=== PATIENT | female | born 1985 | race Asian ===

== ENCOUNTER 2018-09-03 21:08 | Inpatient (IN) | payer OTHER ==
[2018-09-03] MEDS ORDERED: DIPHTH,PERTUSS(ACELL),TET 0.5 ML DISP.SYRIN IM ONE ×2 (21:17→22:02)
--- NOTE | 2018-09-03 21:20 | PDOC ---
Rapid Medical Evaluation Time Seen by Provider: 09/03/18 21:11 Medical Evaluation: 09/03/18 21:16 Pt c/o: was cooking and suddenly felt dizzy and then fell to the ground, + LOC of unknown time, pt states likely minutes, now c/o headache and nausea Pt on brief exam: appears groggy and slightly unsure what time she started cooking at, vss, + linear deep lac to left temporal region Pt ordered for: labs, ekg, and head ct Pt to proceed to the ED Discharge Disposition - Diagnosis Head injury - Referrals - Patient Instructions - Post Discharge Activity
[2018-09-03 21:45] LABS: BASO % 0.7 % (0-2.0); EOS % 1.1 % (0-4.5); HEMATOCRIT 36.8 % (32.4-45.2); HEMOGLOBIN 11.6 GM/dL (10.7-15.3); LYMPH % 15.9 % (8-40); MCH 25.9 pg (25.7-33.7); MCHC 31.6 g/dl (32.0-36.0); MEAN PLT VOLUME 7.3 fl (7.5-11.1); MONO % 5.7 % (3.8-10.2); NEUT % 76.6 % (42.8-82.8); PLATELET COUNT 372 K/MM3 (134-434); RBC 4.49 M/mm3 (3.60-5.2); RDW 20.3 % (11.6-15.6); WHITE BLOOD COUNT 6.3 K/mm3 (4.0-10.0)
--- NOTE | 2018-09-03 22:11 | PDOC ---
History of Present Illness - General Chief Complaint: Syncope/Near Syncope Stated Complaint: PASS OUT HIT HEAD Time Seen by Provider: 09/03/18 21:11 - History of Present Illness Initial Comments: Adelaida Mirza is a 33yo woman with no known medical history who presents after a syncopal event at home tonight. She says that she was cooking dinner when she began to feel overheated, nauseated, and dizzy. She then woke up on the floor and says she must have passed out and fallen. She hit her head during the fall as she presented with a left scalp laceration, but she is not sure what she hit. She reports a headache but denies any other pain currently. She says that she feels very tired, but she says that she is normally asleep at this time as she works overnights and does not wake up until after midnight. She is not sure how long she has been awake at this point. She denies neck pain, recent fevers, h/o syncope, history of seizures, chest pain, shortness of breath, alcohol/drug use, or sick contacts. Past History - Past Medical History Allergies/Adverse Reactions: Allergies Allergy/AdvReac Type Severity Reaction Status Date / Time pollen extracts Allergy Verified 09/03/18 21:15 Anemia: No Asthma: No Cancer: No Cardiac Disorders: No CVA: No COPD: No Other medical history: h/o syncope 2018 - Suicide/Smoking/Psychosocial Hx Smoking History: Never smoked Have you smoked in the past 12 months: No Information on smoking cessation initiated: No Hx Alcohol Use: Yes (social) Drug/Substance Use Hx: No Review of Systems - Review of Systems Comments:: General: No fevers, no chills, no weight or appetite change, no malaise HEENT: No changes in vision, no changes in hearing, no congestion, no sore throat CV: No chest pain, no palpitations, no LE edema Pulm: No SOB, no cough, no wheezing GI: No nausea or vomiting, no change in bowel habits, no melena : No frequency, no urgency, no dysuria Musc: No back pain, no joint swelling, no recent injury Skin: No rash, no lesions, no erythema Endo: No excessive thirst, no heat/cold intolerance Heme: No unusual bruising or bleeding, no swollen glands Neuro: + syncope, no numbness/tingling, no focal weakness Vasc: No claudication Psych: No recent change in mood, no SI or HI *Physical Exam - Vital Signs Last Vital Signs Temp Pulse Resp BP Pulse Ox 98.1 F 93 H 20 118/88 99 09/03/18 21:16 09/03/18 21:16 09/03/18 21:16 09/03/18 21:16 09/03/18 21:16 - Physical Exam Comments: General: Diaphoretic, mildly confused, no acute distress HEENT: PERRL, EOMI, MMM, normal neck ROM w/o posterior neck tenderness, no LAD. 2 laceration, clean and linear without active bleeding, on left frontal/ parietal scalp under hairline. Cards: RRR, no murmur appreciated Pulm: Comfortable on room air, clear to auscultation bilaterally Abd: Soft, nontender, nondistended Back: No visible injury, no step-offs or deformities Ext: Atraumatic. No LE edema. ROM intact. Strength 5/5 and equal bilaterally Vasc: Extremities WWP. Skin: Normal color, no rashes or lesions Neuro: Awake, responsive, oriented but slow responses and appears confused (eg "I do not think I worked yesterday"), CN grossly intact, normal speech, motor/ sensory grossly intact and symmetric but delayed responses Psych: Slightly flat, uncaring Procedures - Laceration/Wound Repair Left Lateral Frontal Wound Length: to 2.5 cm Wound Explored: clean Wound's Depth, Shape: linear Irrigated w/ Saline: Yes Anesthesia: 1% Lidocaine Amount of Anesthetic (ccs): 3 Wound Repaired With: [place] Sterile Dressing Applied: No ED Treatment Course - LABORATORY CBC & Chemistry Diagram: 09/03/18 20:30 09/03/18 20:30 - ADDITIONAL ORDERS Additional order review: 09/03/18 20:30 RBC 4.49 MCV 82.0 MCHC 31.6 L RDW 20.3 H MPV 7.3 L Neutrophils % 76.6 Lymphocytes % 15.9 Monocytes % 5.7 Eosinophils % 1.1 Basophils % 0.7 - Medications Given in the ED: ED Medications Discontinued Medications Generic Name Dose Route Start Last Admin Trade Name Freq PRN Reason Stop Dose Admin Diphtheria/Tetanus/Acell Pertussis 0.5 ml 09/03/18 21:17 09/03/18 22:02 Boostrix - IM 09/03/18 21:18 0.5 ml .ONCE ONE Administration Medical Decision Making - Medical Decision Making 09/03/18 22:30 Several attempts made to see Ms Mirza, not present in assigned room. Nurse Keith has also been unable to locate her. Labs sent in [facility] including CBC, chemistry, test completed and reviewed. No concerning abnormalities appreciated. Trop negative. Preg negative. EKG, CT head, CXR to be completed. 09/03/18 23:29 - Pt examined following CT. Notable for diaphoresis, delayed responses, appears mildy confused; possible concussion. No focal deficits. 2cm deep laceration on left frontal/parietal scalp that will require jaycob. Reports feeling hot, nauseated prior to syncope. May be vagal, but unclear cause. - Pt hypotensive in 90's, HR in low 60's - Will give IVF, place on cardiac monitors. 09/03/18 23:41 - CT completed. No fracture or acute intracranial pathology noted - Plan to repair scalp laceration 09/04/18 00:54 - Laceration repair completed at bedside. The wound was anesthetized with 3cc of 1% lidocaine. The wound was then irrigated with sterile saline and explored thoroughly. No foreign material was noted. The laceration was then repaired using 5 jaycob. The wound edges were well approximated, and adequate hemostasis was achieved. The procedure was well tolerated, and no complications were observed. Ms Mirza will need to return in 7-10 days for staple removal. - Sign out given to Dr Sal for the remainder of her ED care. Discussed with Dr Bethea. Shyann Berger PGY1 *DC/Admit/Observation/Transfer Diagnosis at time of Disposition: Head injury - Referrals - Patient Instructions - Post Discharge Activity
[2018-09-03 22:20] LABS: ALBUMIN 3.7 g/dl (3.4-5.0); ALK PHOS 50 U/L (45-117); ANION GAP 10 MMOL/L (8-16); BILIRUBIN,TOTAL 0.2 mg/dL (0.2-1); BLOOD UREA NITROGEN 8 mg/dL (7-18); CALCIUM 7.9 mg/dL (8.5-10.1); CHLORIDE 106 mmol/L (98-107); CO2 24 mmol/L (21-32); CREATININE 0.7 mg/dL (0.55-1.3); GLUCOSE,RANDOM 91 mg/dL (74-106); POTASSIUM 4.7 mmol/L (3.5-5.1); SGOT/AST 23 U/L (15-37); SGPT/ALT 15 U/L (13-61); SODIUM 140 mmol/L (136-145); TOT PROT 7.4 g/dl (6.4-8.2)
[2018-09-03] MEDS ORDERED: SODIUM CHLORIDE 1,000 ML IV STA (23:15)
[2018-09-04] MEDS ORDERED: SODIUM CHLORIDE 1,000 ML IV STA (00:38)
--- NOTE | 2018-09-04 00:42 | PDOC ---
*Physical Exam - Vital Signs Last Vital Signs Temp Pulse Resp BP Pulse Ox 98.1 F 93 H 20 118/88 99 09/03/18 21:16 09/03/18 21:16 09/03/18 21:16 09/03/18 21:16 09/03/18 21:16 - Physical Exam Comments: 09/04/18 00:[address] Berger in brief this is a 33yo woman with no known medical history who presents after a syncopal event at home tonight. Laceration of left head. CT head negative. ED Treatment Course - LABORATORY CBC & Chemistry Diagram: 09/03/18 20:30 09/03/18 20:30 - ADDITIONAL ORDERS Additional order review: Laboratory Results 09/03/18 09/03/18 09/03/18 20:30 20:30 20:30 Sodium 140 Potassium 4.7 Chloride 106 Carbon Dioxide 24 Anion Gap 10 BUN 8 Creatinine 0.7 Est GFR (CKD-EPI)AfAm 133.81 Est GFR (CKD-EPI)NonAf 115.45 Random Glucose 91 Calcium 7.9 L Total Bilirubin 0.2 AST 23 ALT 15 Alkaline Phosphatase 50 Creatine Kinase 108 Troponin I < 0.02 Total Protein 7.4 Albumin 3.7 Serum , Qual Negative Blood Type O POSITIVE Antibody Screen Negative 09/03/18 20:30 RBC 4.49 MCV 82.0 MCHC 31.6 L RDW 20.3 H MPV 7.3 L Neutrophils % 76.6 Lymphocytes % 15.9 Monocytes % 5.7 Eosinophils % 1.1 Basophils % 0.7 - Medications Given in the ED: ED Medications Discontinued Medications Generic Name Dose Route Start Last Admin Trade Name Freq PRN Reason Stop Dose Admin Diphtheria/Tetanus/Acell Pertussis 0.5 ml 09/03/18 21:17 09/03/18 22:02 Boostrix - IM 09/03/18 21:18 0.5 ml .ONCE ONE Administration Sodium Chloride 1,000 mls @ 1,000 mls/hr 09/03/18 23:15 09/03/18 23:43 Normal Saline - IV 09/04/18 00:14 1,000 mls/hr ASDIR STA Administration Medical Decision Making - Medical Decision Making 09/04/18 06:[address] Rivera will admit to telemetry for further management. *DC/Admit/Observation/Transfer Diagnosis at time of Disposition: Head injury Qualifiers: Encounter type: initial encounter Qualified Code(s): S09.90XA - Unspecified injury of head, initial encounter Syncope Qualifiers: Syncope type: unspecified Qualified Code(s): R55 - Syncope and collapse - Discharge Dispostion Decision to Admit order: Yes - Referrals - Patient Instructions - Post Discharge Activity
--- NOTE | 2018-09-04 02:33 | PDOC ---
Documentation entered by Steven Chambers SCRIBE, acting as scribe for Linda Bethea MD. Linda Bethea MD: This documentation has been prepared by the Trish huston Nirvannie, SCRIBE, under my direction and personally reviewed by me in its entirety. I confirm that the documentation accurately reflects all work, treatment, procedures, and medical decision making performed by me. Attending Attestation - Resident Resident Name: Shyann Berger - ED Attending Attestation I have performed the following: I have examined & evaluated the patient, The case was reviewed & discussed with the resident, I agree w/resident's findings & plan, Exceptions are as noted - HPI HPI: 09/03/18 23:19 The patient is a 33 year old female, with no significant past medical history, who presents to the emergency department s/p fall. As per patient, she was feeling lightheaded, nauseous, and "warm" as she was cooking at which point she fell subsequently hitting her head. +LOC. When she woke up, she noticed bleeding from the L side of her head. Does not know how long she was out for. Currently states she feels generalized weakness and a gradual onset global headache since she fell. She reports a history of a similar syncopal episode but does not recall the circumstances. States that she thinks she just completed her period but is not sure. Denies any drug or alcohol use recently. States she lives with her roommates. Does not remember her last tetanus shot. Denies fevers, chills, stiff neck, rashes. She denies recent vomit, diarrhea or constipation. She denies recent dysuria, frequency, urgency or hematuria. She denies recent chest pain or shortness of breath. Denies focal weakness or numbness. Allergies: Pollen extracts. - Physicial Exam PE: 09/03/18 23:19 GENERAL: Awake, lethargic appearing, confused, slow to respond to questions. Non toxic appearing in NAD HEAD: +hemostatic laceration to L parietal scalp EYES: PERRLA, EOMI, sclera anicteric, conjunctiva clear. +5-6 beats of nystagmus with R gaze that self extinguishes ENT: Auricles normal inspection, hearing grossly normal, nares patent, oropharynx clear without exudates. Moist mucosa NECK: Normal ROM, supple, no lymphadenopathy LUNGS: Breath sounds equal, clear to auscultation bilaterally. No wheezes, and no crackles HEART: Regular rate and rhythm, normal S1 and S2, no murmurs, rubs or gallops ABDOMEN: Soft, nontender, normoactive bowel sounds. No guarding, no rebound. No masses EXTREMITIES: Normal range of motion, no edema. No clubbing or cyanosis. No cords , erythema, or tenderness BACK: No midline spinal tenderness in cervical/thoracic/lumbar region NEUROLOGICAL: Fluent speech but slow to respond to questions, cranial nerves intact, negative pronator drift, 5/5 strength in all 4 extremities, normal sensation to light touch in all 4 extremities, normal cerebellar exam, normal gait, normal reflexes and tone SKIN: Warm, Dry, normal turgor, no rashes or lesions noted. - Medical Decision Making 09/04/18 02:29 33yo F presents to the ED with syncopal episode Vitals wnl Syncopal prodrome most consistent with vasovagal syncope, however pt has been slow to respond and has appeared confused at times For example, obinna asked who her PMD is, she looks at her hospital ID band and states "I'm not sure I have one yet" Broad toxic, metabolic, infectious, neurologic w/u not revealing thus far Despite 2L of fluids and observation, pt has been persistantly slow to respond to questions Possible concussion vs post ictal vs toxic ingestion such as K2? Plan to observe pt on telemetry for further management Heart Score/ECG Review #1 09/04/18 02:28 Twelve-lead EKG was performed and reviewed by me. Normal sinus rhythm, rate 63. Normal axis and intervals. No ST elevations. T wave inversions in leads 3 and V3. No previous EKG to compare.
--- NOTE | 2018-09-04 02:47 | PN ---
Teaching Attending Note Name of Resident: Rosa Rivera ATTENDING PHYSICIAN STATEMENT I saw and evaluated the patient. I reviewed the resident's note and discussed the case with the resident. I agree with the resident's findings and plan as documented. SUBJECTIVE: Patient is a 33 year old woman with no significant PMH who presents to the ER after a fall. Patient says she was feeling lightheaded, nauseous, and "warm" as she was cooking, then fell and hit her head, with associated LOC. When she woke up, she noticed bleeding from the left side of her head. Does not know how long she was out for. Currently states she feels generalized weakness and a gradual onset global headache since she fell. No fecal or urinary incontinence. She reports a history of a similar syncopal episode but does not recall the circumstances. States that she thinks she just completed her period but is not sure. Denies any drug or alcohol use recently. States she lives with her roommates. Does not remember her last tetanus shot. Denies fevers, chills, stiff neck, rashes. She denies recent vomiting, diarrhea or constipation. She denies recent dysuria, frequency, urgency or hematuria. She denies recent chest pain or shortness of breath. Denies focal weakness or numbness. OBJECTIVE: Lethargic and intermittently confused Vital Signs Period Temp Pulse Resp BP Sys/[place] Pulse Ox Last 24 Hr 98.1 F 93 20 118/88 99 HEENT: No Jaundice, eye redness or discharge, PERRLA, Horizontal nystagmus. Normocephalic, laceration on parietal scalp with jaycob. External ears are normal and hearing is grossly intact. No nasal discharge. Neck: Supple, nontender. No palpable adenopathy or thyromegaly. No JVD Chest: Good effort. Clear to auscultation and percussion. Heart: Regular. No S3, rub or murmur Abdomen: Not distended, soft, nontender and no HSM. No rebound or guarding. Normal bowel sounds. Ext: Peripheral pulses intact. No leg edema. Skin: Warm and dry. No petechiae, rash or ecchymosis. Neuro: Lethargic but arousale; intermittently confused; sluggish and slow to respond to questions; poor memory. Oriented to person. CN 2-12 grossly intact. Sensation grossly intact in all four extremities and DTR are symmetric. Psych: Appropriate mood and affect. Good insight. Abnormal Lab Results 09/03/18 09/03/18 09/04/18 20:30 20:30 00:00 MCHC 31.6 L RDW 20.3 H MPV 7.3 L Calcium 7.9 L Salicylates < 1.7 L Acetaminophen < 2.0 L ASSESSMENT AND PLAN: 1. Syncope/Fall and Head Trauma - Etiology of syncope unclear. Vasovagal syncope or partial complex seizures are likely culprits. No acute abnormality on noncontrast head CT scan. Blood tests for Aspirin, tylenol and alcohol were negative and urine toxicology screen is negative. EKG shows NSR with t wave inversion in III and V3 and initial troponin is negative. Will continue IV fluids and monitor on telemetry. Got DPT vaccine in the ER. Now possibly has cerebral concussion. Will get speech and swallow evaluation, do neurochecks, implement fall, seizure and aspiration precautions. Will get repeat EKG and troponin, ECHO, carotid doppler and EEG. Consult Neurology and PT. Most important, will strive to contact her roommates or any family members during the day to obtain more information. Curiously non of her roommates accompanied her to the ER after such a traumatic event - considering that ?one of them called the EMS. 2. DVT prophylaxis - Lovenox 40 mg SQ q 24 hours. 3. Advance directives - Full code
--- NOTE | 2018-09-04 03:29 | HP ---
CHIEF COMPLAINT: s/p fall, syncope PCP: none HISTORY OF PRESENT ILLNESS: 33 y/o F with no significant PMH who presents to the ED s/p fall which occurred this evening. As per pt, she was cooking dinner when she suddenly began to feel warm, diaphoretic, and nauseated. Next thing she knew, she was on the floor. Endorses LOC and laceration to the L temporal portion of head. Does not recall palpitations or chest pain before the event. Also denies urinary or bowel incontinence and tongue biting. On examination, pt is lethargic and slow to respond. Lives with roommates. Denies recent ingestions or alcohol. Denies [place], fever, chills, SOB, chest pain or pressure, or changes in urinary or bowel function. No collateral information provided, as no roommates or family/friends at bedside. Pt states that she has had syncopal events before, but does not recall when they were. ER course was notable for: (1) ns 2L, orthostatics (-) prior as per ED (2) tdap (3) Recent Travel: [place] in july PAST MEDICAL HISTORY: none PAST SURGICAL HISTORY: none Social History: lives w roommates Smoking: denies Alcohol: "sometimes" Drugs: denies Family History: mother - breast [place] Allergies pollen extracts Allergy (Verified 09/03/18 21:15) fructose intolerance HOME MEDICATIONS: states she takes an antihistamine PRN . does not recall name REVIEW OF SYSTEMS CONSTITUTIONAL: Absent: fever, chills, diaphoresis, generalized weakness, malaise, loss of appetite, weight change HEENT: Absent: rhinorrhea, nasal congestion, throat pain, throat swelling, difficulty swallowing, mouth swelling, ear pain, eye pain, visual changes CARDIOVASCULAR: Absent: chest pain, syncope, palpitations, irregular heart rate, lightheadedness , peripheral edema RESPIRATORY: Absent: cough, shortness of breath, dyspnea with exertion, orthopnea, wheezing, stridor, hemoptysis GASTROINTESTINAL: Absent: abdominal pain, abdominal distension, nausea, vomiting, diarrhea, constipation, melena, hematochezia GENITOURINARY: Absent: dysuria, frequency, urgency, hesitancy, hematuria, flank pain, genital pain MUSCULOSKELETAL: Absent: myalgia, arthralgia, joint swelling, back pain, neck pain SKIN: Absent: rash, itching, pallor HEMATOLOGIC/IMMUNOLOGIC: Absent: easy bleeding, easy bruising, lymphadenopathy, frequent infections ENDOCRINE: Absent: unexplained weight gain, unexplained weight loss, heat intolerance, cold intolerance NEUROLOGIC: +mental status change Absent: headache, focal weakness or paresthesias, dizziness, unsteady gait, seizure, mental status changes, bladder or bowel incontinence PSYCHIATRIC: Absent: anxiety, depression, suicidal or homicidal ideation, hallucinations. PHYSICAL EXAMINATION Vital Signs - 24 hr 09/03/18 21:16 Temperature 98.1 F Pulse Rate 93 H Respiratory 20 Rate Blood Pressure 118/88 O2 Sat by Pulse 99 Oximetry (%) GENERAL: AAO x 3 however slow to respond. HEAD: +L temporal abrasion w 5 jaycob. +bruising EYES: Pupils equal, round and reactive to light, extraocular movements intact, sclera anicteric, conjunctiva clear. +intermittent horizontal nystagmus EARS, NOSE, THROAT: Ears normal, nares patent, oropharynx clear without exudates. Moist mucous membranes. NECK: Normal range of motion, supple LUNGS: Breath sounds equal, clear to auscultation bilaterally. No wheezes, and no crackles. No accessory muscle use. HEART: +tachycardic rate and rhythm, normal S1 and S2 without murmur, rub or gallop. ABDOMEN: Soft, nontender, not distended, normoactive bowel sounds, no guarding, no rebound, no masses. LOWER EXTREMITIES: 2+ pt pulses, warm, well-perfused. No calf tenderness. No peripheral edema. NEUROLOGICAL: Cranial nerves II-XII intact. would not participate in strength exam . sensation intact. PSYCHIATRIC: Cooperative. SKIN: Warm, dry Laboratory Tests 09/03/18 09/03/18 09/03/18 20:30 20:30 20:30 WBC 6.3 Hgb 11.6 Hct 36.8 Plt Count 372 Sodium 140 Potassium 4.7 Chloride 106 Carbon Dioxide 24 BUN 8 Creatinine 0.7 Troponin I < 0.02 Serum , Qual Negative Urine Color Acetaminophen 09/04/18 09/04/18 09/04/18 00:00 03:14 03:14 Hgb Troponin I Serum , Qual Urine Color Yellow Urine Appearance Clear Urine pH 7.0 Ur Specific [place] 1.012 Urine Protein Negative Urine Glucose (UA) Negative Urine Ketones Negative Urine Blood Negative Urine Nitrite Negative Urine Bilirubin Negative Ur Leukocyte Esterase Negative Salicylates < 1.7 L Opiates Screen Pending Methadone Screen Pending Acetaminophen < 2.0 L EKG: TWI 3, v3 . not in contiguous leads. rate 84bpm, qtc 451ms head CT: +L frontal scalp laceration, otherwise WNL ASSESSMENT/PLAN: 33 y/o F with no significant PMH who presents to the ED s/p fall which occurred this evening. As per pt, she was cooking dinner when she suddenly began to feel warm, diaphoretic, and nauseated. #s/p fall syncope vs. seizure -possible 2/2 vasovagal syncope given prodrome prior. however will need to r/o syncope: f/u ECHO, carotid duplex, tele monitoring for arrhythmias -will hydrate IV NS 100 cc/hr -possible also 2/2 seizure. appears confused may be post-ictal. was unwitnessed -will consult neuro for further w/u. Dr. Yanes -concerning cause- no evidence of infection with UA (-), afebrile. full utox pending -sympt may also be post-concussive causing mood change -NPO until more awake #F/E/N IV NS 100 cc/hr continue to follow lytes npo until more awake. then can advance #PPX DVT: SCD's #Dispo admit to tele will need neuro w/u does not appear to solely be vasovagal. need to r/o seizure , other component d/t current lethargy, nystagmus, etc Visit type - Emergency Visit Emergency Visit: Yes ED Registration Date: 09/04/18 Care time: The patient presented to the Emergency Department on the above date and was hospitalized for further evaluation of their emergent condition. - New Patient This patient is new to me today: Yes Date on this admission: 09/03/18 - Critical Care Critical Care patient: No
[2018-09-04 03:36] LABS: URINE APPEARANCE CLEAR; URINE BILIRUBIN NEGATIVE (NEGATIVE); URINE COLOR YELLOW; URINE GLUCOSE (UA) NEGATIVE (NEGATIVE); URINE KETONE NEGATIVE (NEGATIVE); URINE LEUK ESTERASE NEGATIVE (NEGATIVE); URINE NITRITE NEGATIVE (NEGATIVE); URINE PROTEIN NEGATIVE (NEGATIVE); URINE UROBILINOGEN 0.2 mg/dL (0.2-1.0)
[2018-09-04 03:54] LABS: COCAINE, UR NEGATIVE ng/ml (CUTOFF=300); METHADONE, UR NEGATIVE ng/ml (CUTOFF=300); OPIATES, URI NEGATIVE ng/ml (CUTOFF=300); PHENCYCLIDINE,URINE NEGATIVE ng/ml (CUTOFF=25); URINE AMPHETAMINES NEGATIVE ng/ml (CUTOFF=500); URINE BARBITURATES NEGATIVE ng/ml (CUTOFF=200); URINE BENZODIAZEPINES NEGATIVE ng/ml (CUTOFF=200)
[2018-09-04] MEDS: SODIUM CHLORIDE 1,000 ML IV SCH (05:17)
[2018-09-04 06:07] LABS: BASO % 0.7 % (0-2.0); HEMATOCRIT 33.5 % (32.4-45.2); HEMOGLOBIN 10.5 GM/dL (10.7-15.3); LYMPH % 21.7 % (8-40); MCH 25.8 pg (25.7-33.7); MCHC 31.5 g/dl (32.0-36.0); MEAN CELL VOLUME 82.2 fl (80-96); MEAN PLT VOLUME 7.5 fl (7.5-11.1); NEUT % 68.6 % (42.8-82.8); PLATELET COUNT 368 K/MM3 (134-434); RBC 4.07 M/mm3 (3.60-5.2); WHITE BLOOD COUNT 6.8 K/mm3 (4.0-10.0)
[2018-09-04 06:36] LABS: ALBUMIN 3.1 g/dl (3.4-5.0); BILIRUBIN,TOTAL 0.3 mg/dL (0.2-1); CALCIUM 7.5 mg/dL (8.5-10.1); CREATININE 0.7 mg/dL (0.55-1.3); PHOSPHOROUS 3.1 mg/dL (2.5-4.9); POTASSIUM 3.9 mmol/L (3.5-5.1); TOT PROT 6.1 g/dl (6.4-8.2)
--- NOTE | 2018-09-04 09:44 | PN ---
Progress Note (short form) - Note Progress Note: c/o slight DAVENPORT which has improved since arrival. states had similar episode a year ago when taking out the trash. had sudden onset of dizzyness and nausea and had LOC. did not hit her head that time and did not seek medical attention at that time. no similar episodes since then. was hospitalized a few times when she was 8 years old due to hallucinations. but does not recall what was cause of them but they have since resolved and never recalls being on medications for this. only take zyrtec at bedtime. no new medications. reports being well the past few days. denies CP, SOB, fever, chills, N/V/C/D reports not drinking ETOH yesterday Current Medications Generic Name Dose Route Start Last Admin Trade Name Freq PRN Reason Stop Dose Admin Sodium Chloride 1,000 mls @ 100 mls/hr 09/04/18 03:30 09/04/18 05:17 Normal Saline - IV 100 mls/hr ASDIR SAL Administration Last Vital Signs Temp Pulse Resp BP Pulse Ox 98.0 F 68 18 115/71 98 09/04/18 03:19 09/04/18 06:52 09/04/18 06:52 09/04/18 06:52 09/04/18 07:24 General NAD, flat affect, slow to respond HEENT L lateral nystagmus CV s1 S2 RRR no murmur/rub/gallop no carotid bruit Lungs CTA B/L no wheezing/rales/rhonchi Abdomen soft NT/ND Extremities no pedal edema neuro CN II- XII grossly intact. strength and sensation equal inall 4 extremities A/P 33yo F with no PMH presented after syncopal episode with +LOC and striking her head 1. Syncope with collapse- possible dehydration vs arrythmia vs seizure with collapse. will place on cardiac monitoring. check orthostatics. echo pending. Neuro consulted. Head CT and carotid doppler were normal. TSH, UA and Utox normal. 2. Normocytic anemia- no signs of bleeding. check iron studies. trend hgb no indication for transfusion 3. Hypocalcemia- start multivitamin with ca 4. DVT ppx- Lovenox Visit type - Emergency Visit Emergency Visit: Yes ED Registration Date: 09/04/18 Care time: The patient presented to the Emergency Department on the above date and was hospitalized for further evaluation of their emergent condition. - New Patient This patient is new to me today: Yes Date on this admission: 09/04/18 - Critical Care Critical Care patient: No - Discharge Referral Referred to [facility] Med P.C.: No
[2018-09-04] MEDS ORDERED: ENOXAPARIN NA (PORCINE) 40 MG/0.4 ML DISP.SYRIN SQ ONE (11:24)
[2018-09-04] MEDS: ENOXAPARIN NA (PORCINE) 40 MG/0.4 ML DISP.SYRIN SQ SCH (11:39)
[2018-09-04] MEDS: MULTIVITAMINS (DAILY MVI) TABLET (FP) PO SCH (13:00)
[2018-09-04 16:01] VITALS: BMI 22.5
--- NOTE | 2018-09-04 17:26 | CONSULT ---
Consult - text type - Consultation Consultation Note: NEUROLOGY CONSULTATION is greatly appreciated: This 33 yo RH s woman with No sig PMH is admitted after fainting. She was cooking when she developed lightheadedness, a hot flushing feeling, became cold and clammy, had progressive graying of vision then LOC. Awoke on kitchen floor, briefly confused than rapidly reoriented. No tongue biting. No incontinence. Pt had transient ringing in her ears yesterday. Resolved. Patient recalls one similar episode about 1 year ago. Walked 10 mins to ER. Noted to have left forehead laceration requiring 5 jaycob. Had dull holocranial headache yesterday without nausea. Mild L sided DAVENPORT today. CT of head (reviewed): Normal Carotid duplex: Normal No othostatic BP changes (110/60) ROS sig: for "daily" episodes of throat tightness with SOB and lightheadedness lasting 20-60 mins. This lightheadedness is "different" from yesterday. Episodic left sided throbbing headaches with photophobia, phonophobia and kinesiophobia. 2-3/month often with menses. +FH in mother and mat. GM. Feels depressed. HAYLEE: Neck supple. Small abrasion left cheek and clean suture line left rastafari. No bruits. Chest clear. NEURO: Awake, alert, withdrawn and depressed. MS Normal. Speech hypophonic but fluent. CN II-XII: normal Motor: No drift or tremor. Normal strength, tone and bulk. normal reflexes. Toes downgoing. Coord: No FTN dystaxia Sensory: Normal Gait: Deferred IMP: 1. Normal neurological exam 2. Uncomplicated Syncope. 3. Panic attacks (may contribute to syncope) 4. Migraine headaches 5. Depression SUGGEST: Cont telemetry x 24 hrs. Cardiology opinion Cont Orthostaic BP's Begin Bupropion XL 150 mg/day Neuro f/u as out patient. Thank you very much, Anson Yanes MD
[2018-09-05 05:57] LABS: HEMATOCRIT 32.8 % (32.4-45.2); HEMOGLOBIN 10.3 GM/dL (10.7-15.3); MCH 25.4 pg (25.7-33.7); MCHC 31.3 g/dl (32.0-36.0); MEAN CELL VOLUME 81.3 fl (80-96); MEAN PLT VOLUME 7.5 fl (7.5-11.1); PLATELET COUNT 358 K/MM3 (134-434); RBC 4.03 M/mm3 (3.60-5.2); RDW 20.1 % (11.6-15.6); WHITE BLOOD COUNT 4.3 K/mm3 (4.0-10.0)
[2018-09-05 06:34] LABS: CALCIUM 8.2 mg/dL (8.5-10.1); CREATININE 0.6 mg/dL (0.55-1.3); POTASSIUM 3.8 mmol/L (3.5-5.1)
[2018-09-05] MEDS: SODIUM CHLORIDE 1,000 ML IV SCH ×2 (07:44→12:51)
[2018-09-05] MEDS: MULTIVITAMINS (DAILY MVI) TABLET (FP) PO SCH (09:10)
[2018-09-05] MEDS: ENOXAPARIN NA (PORCINE) 40 MG/0.4 ML DISP.SYRIN SQ SCH (09:11)
--- NOTE | 2018-09-05 10:59 | PN ---
Physical Exam: SUBJECTIVE: Patient seen and examined at bedside-no acute events overnight patient states she is feeling well though is still having a slight headache however much improved; she denies any CP/SOB/N/V no palpitations OBJECTIVE: Vital Signs Period Temp Pulse Resp BP Sys/Corona Pulse Ox Last 24 Hr 97.9 F-98.6 F 61-75 14-19 100-131/63-86 95-100 GENERAL: The patient is awake, alert, and fully oriented, flat affect and slightly avoiding eye contact EYES: PEERLA: EOMI no scleral icterus NECK: no JVD; no lymphadenopathy LUNGS:CTA B/L; no rales, rhonchi or wheezing HEART: Regular rate and rhythm, S1, S2 without murmur, rub or gallop. ABDOMEN: Soft, nontender, nondistended, normoactive bowel sounds, no guarding, no rebound, no hepatosplenomegaly, no masses. EXTREMITIES: 2+ pulses, warm, well-perfused, no edema. NEUROLOGICAL: Cranial nerves II through XII grossly intact. Normal speech 5/5 strength B/L UE LE; sensation intact throughout , gait not observed. PSYCH: Normal mood, normal affect. SKIN: Warm, dry, normal turgor, no rashes or lesions noted Laboratory Results - last 24 hr 09/03/18 09/05/18 09/05/18 11:49 05:45 05:45 WBC 4.3 RBC 4.03 Hgb 10.3 L Hct 32.8 MCV 81.3 MCH 25.4 L MCHC 31.3 L RDW 20.1 H Plt Count 358 MPV 7.5 Sodium 140 Potassium 3.8 Chloride 111 H Carbon Dioxide 24 Anion Gap 5 L BUN 6 L Creatinine 0.6 Est GFR (CKD-EPI)AfAm 140.77 Est GFR (CKD-EPI)NonAf 121.46 Random Glucose 91 Calcium 8.2 L Ferritin 6.8 L Blood Type O POSITIVE Active Medications Generic Name Dose Route Start Last Admin Trade Name Freq PRN Reason Stop Dose Admin Bupropion HCl 150 mg 09/05/18 10:00 09/05/18 09:10 Wellbutrin Xl - PO 150 mg DAILY SAL Administration Enoxaparin Sodium 40 mg 09/04/18 11:15 09/05/18 09:11 Lovenox - SQ 40 mg DAILY SAL Administration Sodium Chloride 1,000 mls @ 100 mls/hr 09/04/18 03:30 09/05/18 07:44 Normal Saline - IV 100 mls/hr ASDIR SAL Administration Multivitamins/Minerals/Vitamin C 1 tab 09/04/18 11:15 09/05/18 09:10 Tab-A-Vit - PO 1 tab DAILY SAL Administration ASSESSMENT/PLAN: 33 y/o F with no significant PMH who presents to the ED s/p fall which occurred this evening. As per pt, she was cooking dinner when she suddenly began to feel warm, diaphoretic, and nauseated. #s/p fall syncope vs. seizure -possible 2/2 vasovagal syncope given prodrome prior. -head CT negative for any acute pathology; -carotid duplex negative for stenosis -echo pending -monitor orthostatic vitals -neuro consulted; Dr Yanes saw patient started on wellbutrin 150 daily for possible concurrent depression -cardio consulted -tele monitoring for possible arrythmia- so far none seen -NS @100mls/hr #F/E/N IV NS 100 cc/hr continue to follow lytes regular diet #PPX DVT: SCD's Problem List - Problems (1) Syncope Code(s): R55 - SYNCOPE AND COLLAPSE Qualifiers: Syncope type: unspecified Qualified Code(s): R55 - Syncope and collapse Visit type - Emergency Visit Emergency Visit: Yes ED Registration Date: 09/04/18 Care time: The patient presented to the Emergency Department on the above date and was hospitalized for further evaluation of their emergent condition. - New Patient This patient is new to me today: Yes Date on this admission: 09/05/18 - Critical Care Critical Care patient: No
[2018-09-05] MEDS ORDERED: LORATADINE 10 MG TABLET PO ONE (12:29)
--- NOTE | 2018-09-05 13:58 | PN ---
Teaching Attending Note Name of Resident: Subha Salinas ATTENDING PHYSICIAN STATEMENT I saw and evaluated the patient. I reviewed the resident's note and discussed the case with the resident. I agree with the resident's findings and plan as documented. SUBJECTIVE: No complaints. no further episodes. No lighthededness/dizziness. No chest pain/palpitations. OBJECTIVE: Afebrile, Hemodynamically Stable. Appears Depressed. Denies suicidal or homicidal ideation. Last Vital Signs Temp Pulse Resp BP Pulse Ox 97.9 F 64 15 132/94 95 09/05/18 08:00 09/05/18 12:00 09/05/18 12:00 09/05/18 12:00 09/05/18 08:25 HEENT- Atraumatic, Nromocephalic. Heart - S1, S2, RRR Lungs - clear to auscultation Abdomen - soft, non-tender. Bowel Sounds normal. Extremities - No edema, no calf tenderness Laboratory Results - last 24 hr 09/05/18 09/05/18 05:45 05:45 WBC 4.3 RBC 4.03 Hgb 10.3 L Hct 32.8 MCV 81.3 MCH 25.4 L MCHC 31.3 L RDW 20.1 H Plt Count 358 MPV 7.5 Sodium 140 Potassium 3.8 Chloride 111 H Carbon Dioxide 24 Anion Gap 5 L BUN 6 L Creatinine 0.6 Est GFR (CKD-EPI)AfAm 140.77 Est GFR (CKD-EPI)NonAf 121.46 Random Glucose 91 Calcium 8.2 L Ferritin 6.8 L Current Medications Generic Name Dose Route Start Last Admin Trade Name Freq PRN Reason Stop Dose Admin Bupropion HCl 150 mg 09/05/18 10:00 09/05/18 09:10 Wellbutrin Xl - PO 150 mg DAILY SAL Administration Enoxaparin Sodium 40 mg 09/04/18 11:15 09/05/18 09:11 Lovenox - SQ 40 mg DAILY SAL Administration Sodium Chloride 1,000 mls @ 50 mls/hr 09/05/18 12:37 09/05/18 12:51 Normal Saline - IV 50 mls/hr ASDIR SAL Administration Multivitamins/Minerals/Vitamin C 1 tab 09/04/18 11:15 09/05/18 09:10 Tab-A-Vit - PO 1 tab DAILY SAL Administration ASSESSMENT AND PLAN: 33 year old female with no significant PMH, presented after syncopal episode with loss of consciousness and head injury. 1. Syncope with Collapse - sec to dehydration versus panic episode. No telemonitoring events. CT Head - no acute findings. Utox negative Carotid Duplex neg for hemodynamically significant stenosis. Echo pending. Neuro evaluated - started on Wellbutrin for Anxiety/Depression. Hydration ongoing. Cardiology consulted. 2. Normocytic anemia, Iron deficiency - H/H 10.3/32.8, MCV 81.3. Ferritin level only 6.8. Other Iron studies still pending. No acute blood loss. Will give IV Venofer and start oral replacement with Ferrous Sulfate. Will need out-patient work-up. 3. Hypocalcemia- started on Multivitamin with Calcium. DVT Px - on Lovenox.
[2018-09-05] MEDS ORDERED: IRON SUCROSE INJECTION 200 MG in SODIUM CHLORIDE 90 ML IVPB ONE (14:03)
--- NOTE | 2018-09-05 15:16 | EKG ---
Test Reason : Blood Pressure : / mmHG Vent. Rate : 063 BPM Atrial Rate : 063 BPM P-R Int : 130 ms QRS Dur : 078 ms QT Int : 432 ms P-R-T Axes : 038 000 025 degrees QTc Int : 442 ms POOR DATA QUALITY, INTERPRETATION MAY BE ADVERSELY AFFECTED NORMAL SINUS RHYTHM NORMAL ECG NO PREVIOUS ECGS AVAILABLE Confirmed by WESLEY EDMONDSON MD ([id number]) on 09/05/2018 3:16:17 PM Referred By: Confirmed By:WESLEY EDMONDSON MD
[2018-09-05] MEDS ORDERED: INSULIN (NOVOLOG) ASPART 100 UNITS/ML 10ML VIAL ONE (16:05)
[2018-09-05] MEDS: FERROUS SO4 325 MG TABLET (FP) PO SCH (21:32)
[2018-09-06 04:09] LABS: SERUM IRON SATURATION 20 % (15-55); TOTAL IRON BINDING CAPACITY 327 ug/dL (250-450); UIBC 260 ug/dL (131-425)
[2018-09-06 06:17] LABS: HEMATOCRIT 34.6 % (32.4-45.2); MCH 25.9 pg (25.7-33.7); MCHC 31.7 g/dl (32.0-36.0); MEAN CELL VOLUME 81.6 fl (80-96); MEAN PLT VOLUME 7.7 fl (7.5-11.1); PLATELET COUNT 360 K/MM3 (134-434); RBC 4.24 M/mm3 (3.60-5.2); WHITE BLOOD COUNT 4.7 K/mm3 (4.0-10.0)
[2018-09-06 06:50] LABS: CALCIUM 8.8 mg/dL (8.5-10.1); CREATININE 0.7 mg/dL (0.55-1.3); PHOSPHOROUS 4.2 mg/dL (2.5-4.9); POTASSIUM 3.8 mmol/L (3.5-5.1)
[2018-09-06] MEDS: SODIUM CHLORIDE 1,000 ML IV SCH (11:00)
--- NOTE | 2018-09-06 12:08 | PN ---
Teaching Attending Note Name of Resident: Rosa Rivera ATTENDING PHYSICIAN STATEMENT I saw and evaluated the patient. I reviewed the resident's note and discussed the case with the resident. I agree with the resident's findings and plan as documented. SUBJECTIVE:asymptomatic. no repeat episodes. denies Cp, SOB,f ever, chills, N/V/ C/D OBJECTIVE: Last Vital Signs Temp Pulse Resp BP Pulse Ox 98.6 F 61 11 111/84 98 09/06/18 05:55 09/06/18 05:55 09/06/18 05:55 09/06/18 05:55 09/05/18 21:00 General NAD, flat affect, slow to respond CV s1 S2 RRR no murmur/rub/gallop no carotid bruit Lungs CTA B/L no wheezing/rales/rhonchi A/P 33yo F with no PMH presented after syncopal episode with +LOC and striking her head 1. Syncope with collapse- possible dehydration vs panic attacks. all workup negative at this point. no events on cardiac nurse. awaiting echo to be done. willf/u with neuro if all testing is negative. 2. depression- started on wellbutrin 2. Iron def anemia- will start iron supplements. Hgb stable. no signs of bleeding. no indication for transfusion 3. Hypocalcemia- start multivitamin with ca 4. DVT ppx- Lovenox 5. d/c home today if echo is normal
[2018-09-06] MEDS: FERROUS SO4 325 MG TABLET (FP) PO SCH (12:29)
[2018-09-06] MEDS: ENOXAPARIN NA (PORCINE) 40 MG/0.4 ML DISP.SYRIN SQ SCH (12:29)
[2018-09-06] MEDS: MULTIVITAMINS (DAILY MVI) TABLET (FP) PO SCH (12:29)
--- NOTE | 2018-09-06 13:22 | CON.CARD ---
Consult Consult Specialty:: Cardiology Referred by:: Lakia Mims Reason for Consultation:: Syncope - History of Present Illness Chief Complaint: Syncope History of Present Illness: 33 year old female with no significant pmhx presents with syncope. Was preparing dinner and felt dizzy and nausea and went to sit down and fell to floor. +LOC and head laceration. No chest pain or palpitations noted. No dyspnea. Denies incontinence. Denies any toxic habits. No f/c/s. Denies any family history of cardiac disease or sudden . Says occasional dizziness Reports syncope event over a year ago but no work up. - History Source History Provided By: Patient - Past Medical History ...LMP: 09/02/18 ...: No - Alcohol/Substance Use Hx Alcohol Use: Yes (social) - Smoking History Smoking history: Never smoked Have you smoked in the past 12 months: No Home Medications - Allergies Allergies/Adverse Reactions: Allergies Allergy/AdvReac Type Severity Reaction Status Date / Time pollen extracts Allergy Verified 09/03/18 21:15 - Home Medications Home Medications: Ambulatory Orders Bupropion HCl [Wellbutrin Xl -] 150 mg PO DAILY #30 tab.sr.24h 09/05/18 Ferrous Sulfate [Feosol] 325 mg PO BID #60 ud 09/05/18 Multivitamins [Multivit ([facility] Formulary)] 1 tab PO DAILY #30 tab 09/05/18 Vital Signs: Vital Signs Temperature 98.6 F 09/06/18 05:55 Pulse Rate 61 09/06/18 05:55 Respiratory Rate 14 09/06/18 09:00 Blood Pressure 111/84 09/06/18 05:55 O2 Sat by Pulse Oximetry (%) 98 09/06/18 09:00 Constitutional: Yes: No Distress Neck: Yes: WNL Respiratory: Yes: CTA Bilaterally Gastrointestinal: Yes: Soft Cardiovascular: Yes: Regular Rate and Rhythm JVD: No Carotid Bruit: No PMI: Non-Displaced Heart Sounds: Yes: S1, S2 Murmur: No: Systolic Murmur Edema: No - Other Data Labs, Other Data: CBC, BMP 09/06/18 05:46 09/06/18 05:46 Imaging - Results Chest X-ray: Report Reviewed Cat Scan: Report Reviewed EKG: Image Reviewed Assessment/Plan 33 year old female with no significant pmhx presents with syncope. EKG: sinus rhythm no significant ischemic changes or arrhythmias Tele: no arrhythmias CT head noted No lytes abnormalities -mild anemia Carotids no stenosis 1) Syncope Possibly due to low bp and drops in bp with volume status. Encouraged hydration and to carry fluids with her. Salt intake EKG no significant findings Tele unremarkable Lytes unremarkable CE's negative No chest pain, sob, or palpitations Neuro eval. Pending echocardiogram and if unremarkable no further inpatient cardiac work up. Follow up as outpatient with Dr. Stark [phone] and possible event monitor as outpatient. F/u with primary team regarding depression management.
--- NOTE | 2018-09-06 16:25 | ECHO ---
Name: BENSON BENAVIDEZ Exam:Adult Echocardiogram Study Date: 09/06/2018 11:22 AM Age: 33 yrs Reason For Study: SYNCOPE Height: 67 in Weight: 140 lb BSA: 1.7 m2 BP: 117/83 mmHg MMode/2D Measurements & Calculations IVSd: 0.87 cm Ao root diam: 2.8 cm LVIDd: 3.9 cm LA dimension: 2.1 cm LVIDs: 2.6 cm LVPWd: 1.1 cm EDV(Teich): 65.6 ml LVOT diam: 1.9 cm ESV(Teich): 25.2 ml TAPSE: 2.0 cm RV S Marcial: 11.3 cm/sec Doppler Measurements & Calculations MV E max marcial: 89.8 cm/sec Ao V2 max: 146.6 cm/sec MV A max marcial: 71.1 cm/sec Ao max P.6 mmHg MV E/A: 1.3 Ao V2 mean: 97.7 cm/sec MV dec time: 0.18 sec Ao mean P.4 mmHg Ao V2 VTI: 32.3 cm Med Peak E' Marcial: 10.2 cm/sec Med E/e': 8.8 Lat Peak E' Marcial: 14.6 cm/sec Lat E/e': 6.2 Procedure A complete two-dimensional transthoracic echocardiogram was performed (2D, M-mode, Doppler and color flow Doppler). Left Ventricle The left ventricle is normal in size. Left ventricular systolic function is normal. Ejection Fraction = 60- 65%. No regional wall motion abnormalities noted. Right Ventricle The right ventricle is normal size. The right ventricular systolic function is normal. RV systolic TD I is 11 cm/s. Atria The left atrial size is normal. Right atrial size is normal. Mitral Valve The mitral valve is normal in structure and function. There is no mitral regurgitation noted. Tricuspid Valve The tricuspid valve is normal in structure and function. There is trace tricuspid regurgitation. Aortic Valve The aortic valve is normal in structure and function. No aortic regurgitation is present. Pulmonic Valve The pulmonic valve is not well visualized. Great Vessels The aortic root is normal size. Pericardium/Pleura There is no pericardial effusion. Interpretation Summary The left ventricle is normal in size. Left ventricular systolic function is normal. No regional wall motion abnormalities noted. Ejection Fraction = 60-65%. The right ventricular systolic function is normal. The left atrial size is normal. Right atrial size is normal. There is trace tricuspid regurgitation. There is no pericardial effusion. Previous study is not available for comparison Koko Salmon MD 09/06/2018 04:24 PM
--- NOTE | 2018-09-06 17:42 | DS ---
Physical Exam: SUBJECTIVE: Patient seen and examined at bedside. Without complaint. States ready to go home OBJECTIVE: Vital Signs Period Temp Pulse Resp BP Sys/Corona Pulse Ox Last 24 Hr 98.1 F-98.6 F 56-73 11-18 92-122/69-87 98-98 PHYSICAL EXAM GENERAL: The patient is awake, alert, and fully oriented, in no acute distress. HEAD: Normal with no signs of trauma. EYES: PERRL, extraocular movements intact, sclera anicteric, conjunctiva clear. ENT: Ears normal, nares patent, oropharynx clear without exudates, moist mucous membranes. NECK: Trachea midline, full range of motion, supple. LUNGS: Breath sounds equal, clear to auscultation bilaterally, no wheezes, no crackles, no accessory muscle use. HEART: Regular rate and rhythm, S1, S2 without murmur, rub or gallop. ABDOMEN: Soft, nontender, nondistended, normoactive bowel sounds, no guarding EXTREMITIES: 2+ pt pulses, warm, well-perfused, no edema. NEUROLOGICAL: Cranial nerves II through XII grossly intact. PSYCH: Normal mood, normal affect. SKIN: Warm, dry, normal turgor LABS Laboratory Results 09/05/18 09/06/18 09/06/18 05:45 05:46 05:46 WBC 4.7 RBC 4.24 Hgb 11.0 Hct 34.6 MCV 81.6 MCH 25.9 MCHC 31.7 L RDW 20.0 H Plt Count 360 MPV 7.7 Sodium 140 Potassium 3.8 Chloride 107 Carbon Dioxide 27 Anion Gap 7 L BUN 12 Creatinine 0.7 Est GFR (CKD-EPI)AfAm 133.81 Est GFR (CKD-EPI)NonAf 115.45 Random Glucose 88 Calcium 8.8 Phosphorus 4.2 Magnesium 2.0 Iron 67 TIBC 327 Iron Saturation 20 HOSPITAL COURSE: Date of Admission:09/04/18 Date of Discharge: 09/06/18 Admit diagnosis: syncope 33 y/o F with no significant PMH who presents to the ED s/p fall which occurred this evening. As per pt, she was cooking dinner when she suddenly began to feel warm, diaphoretic, and nauseated. Next thing she knew, she was on the floor. Endorses LOC and laceration to the L temporal portion of head. Does not recall palpitations or chest pain before the event. Also denies urinary or bowel incontinence and tongue biting. On examination, pt is lethargic and slow to respond. Lives with roommates. Denies recent ingestions or alcohol. Denies DAVENPORT, fever, chills, SOB, chest pain or pressure, or changes in urinary or bowel function. No collateral information provided, as no roommates or family/friends at bedside. While pt was in hospital, her trops were negative, orthostatics neg. No events on tele. Carotid duplex (-), ECHO: ef 60-65% with normal lv systolic fnc. RV sf normal. trace TR. In ED, head laceration stapled w/5 jaycob. To be removed by PMD. Seen by cardio, Dr. Pickett; for outpt f/u may need event monitor and should continue hydration. Was also seen by neuro and is d/c on Wellbutrin to take for depression. Will also f/u with PMD and psychiatry on d/c, was given referrals for depression resources by CM. Minutes to complete discharge: 41 Discharge Summary Reason For Visit: SYNCOPE AND COLLAPSE Current Active Problems Head injury (Acute) Syncope (Acute) Condition: Good - Instructions Diet, Activity, Other Instructions: You were in the hospital because you passed out. While you were here, your heart was monitored. You had a CT scan done of your head that did not show acute findings. You had jaycob placed in the emergency room for the laceration on your head. You also had imaging done of your carotid vessels and your heart which did not show abnormality. You were seen by a neurologist and business continuity analyst. Medications You were started on new medications: -continue to take Wellbutrin 150mg (1 pill) a day for depression and anxiety. -continue to take Ferrous sulfate 325 mg (iron) 1 pill twice a day to help your iron levels and a multivitamin with calcium daily. Care make sure to stay hydrated Follow up Please follow up with the following: -primary care doctor, Dr. King. we are referring you to her - follow up in a week to discuss your hospital visit and establish care and have jaycob removed. -neurologist, Dr. Yanes - 1 week -psychiatrist, Dr. Gorman- 1 week -business continuity analyst, Dr. Stark - 1 week . you may need a heart monitor (event monitor) as an outpatient . if you develop chest pain, pass out, or have shortness of breath, please go to the hospital. Referrals: Marty King MD [Staff Physician] - 1 Week Narcisa Ingram MD [Staff Physician] - 1 Week Anson Yanes MD [Staff Physician] - 1 Week Jose Stark MD [Staff Physician] - 1 Week Disposition: HOME - Home Medications Comprehensive Discharge Medication List: Ambulatory Orders Bupropion HCl [Wellbutrin Xl -] 150 mg PO DAILY #30 tab.sr.24h 09/05/18 Ferrous Sulfate [Feosol] 325 mg PO BID #60 ud 09/05/18 Multivitamins [Multivit ([facility] Formulary)] 1 tab PO DAILY #30 tab 09/05/18 This patient is new to me today: No Emergency Visit: No Critical Care patient: No - Discharge Referral Referred to [facility] Med P.C.: No
[2018-09-06 18:20] VITALS: BP 117/84; PULSE 74; TEMP 98.3
== END 2018-09-06 19:33 | disposition home or self-care (01) | DRG 312 ==
LOC: JER 21:08 → JERBED 09-04 03:10 → OBSVTOIN 09-04 06:16 → J2W 09-04 15:40
PROVIDERS: ADMIT Internal Medicine; ATTEND Internal Medicine
DX: R55 Syncope and collapse (principal); S09.90XA Unspecified injury of head, initial encounter; X58.XXXA Exposure to other specified factors, initial encounter; Y93.G3 Activity, cooking and baking; Y92.090 Kitchen in other non-institutional residence as the place of occurrence of the external cause; Y99.9 Unspecified external cause status; F32.9 Major depressive disorder, single episode, unspecified; D50.9 Iron deficiency anemia, unspecified; E83.51 Hypocalcemia; G43.909 Migraine, unspecified, not intractable, without status migrainosus; F41.0 Panic disorder [episodic paroxysmal anxiety]
CPT/HCPCS: 36415; 70450-TC; 80048; 80053; 80307; 81003; 82550; 82728; 83540; 83550; 83735; 84100; 84443; 84484; 84703; 85025; 85027; 86850; 86900; 86901; 90715; 93005; 93010; 93306-TC; 93880-TC; 97116-GP; 97162-GP; 99282-25; G0378; J1756; J7030

== ENCOUNTER 2019-11-08 16:36 | Emergency (ER) | payer OTHER ==
--- NOTE | 2019-11-08 16:43 | PDOC ---
Rapid Medical Evaluation Time Seen by Provider: 11/08/19 16:41 Medical Evaluation: Allergies Allergy/AdvReac Type Severity Reaction Status Date / Time pollen extracts Allergy Verified 11/08/19 16:41 11/08/19 16:41 I have performed a brief in-person evaluation of this patient. The patient presents with a chief complaint of: Here w/ dysuria since yesterday. H/o fibroids Pertinent physical exam findings:well ni and in NAD I have ordered the following:ua/cx/upreg The patient will proceed to the ED for further evaluation. Discharge Disposition - Diagnosis Dysuria - Referrals - Patient Instructions - Post Discharge Activity
[2019-11-08 16:45] VITALS: BP 117/90; PULSE 102; BMI 22.7
[2019-11-08 17:45] LABS: EPI CELLS 4 /uL (0-25.1); HYALINE CASTS 0 /uL (0-3.1); URINE APPEARANCE CLOUDY; URINE BILIRUBIN 2+ (NEGATIVE); URINE COLOR RED; URINE GLUCOSE (UA) NEGATIVE (NEGATIVE); URINE KETONE NEGATIVE (NEGATIVE); URINE LEUK ESTERASE 2+ (NEGATIVE); URINE NITRITE POSITIVE (NEGATIVE); URINE PROTEIN 3+ (NEGATIVE); URINE WBC 2811 /uL (0-25.8)
--- NOTE | 2019-11-08 17:59 | PDOC ---
History of Present Illness - General Chief Complaint: Pain Stated Complaint: PAINFUL URINATION Time Seen by Provider: 11/08/19 16:41 History Source: Patient Exam Limitations: No Limitations Past History - Travel History Traveled outside of the country in the last 30 days: No Close contact w/someone who was outside of country & ill: No - Medical History Allergies/Adverse Reactions: Allergies Allergy/AdvReac Type Severity Reaction Status Date / Time pollen extracts Allergy Verified 11/08/19 16:41 Home Medications: Ambulatory Orders Bupropion HCl [Wellbutrin Xl -] 150 mg PO DAILY #30 tab.sr.24h 09/05/18 Ferrous Sulfate [Feosol] 325 mg PO BID #60 ud 09/05/18 Multivitamins [Multivit ([facility])] 1 tab PO DAILY #30 tab 09/05/18 Cephalexin Monohydrate [Keflex -] 500 mg PO BID #14 capsule 11/08/19 Phenazopyridine HCl [Pyridium -] 100 mg PO TID #15 tablet 11/08/19 Anemia: No Asthma: No Cancer: No Cardiac Disorders: No CVA: No COPD: No - Reproductive History Is Patient Now?: No - Immunization History Immunization Up to Date: Yes - Psycho-Social/Smoking History Smoking History: Never smoked Have you smoked in the past 12 months: No Cigars Per Day: 0 - Substance Abuse Hx (Audit-C & DAST Scrn) How often the patient has a drink containing alcohol: Never Score: In Men: 4 or > Positive; In Women: 3 or > Positive: 0 Screen Result (Pos requires Nsg. Audit-10AR): Negative In the last yr the pt used illegal drug/Rx for NonMed reason: No Score: Yes response is considered Positive: 0 Screen Result (Positive result requires Nsg. DAST-10): Negative Review of Systems - Review of Systems Able to Perform ROS?: Yes Comments:: 11/08/19 17:55 CONSTITUTIONAL: Absent: fever, chills, diaphoresis, generalized weakness, malaise, loss of appetite HEENT: Absent: rhinorrhea, nasal congestion, throat pain, throat swelling, difficulty swallowing, mouth swelling, ear pain, eye pain, visual Changes CARDIOVASCULAR: Absent: chest pain, loss of consciousness, palpitations, irregular heart rate, peripheral edema RESPIRATORY: Absent: cough, shortness of breath, dyspnea with exertion, orthopnea, wheezing, stridor, hemoptysis GASTROINTESTINAL: Absent: abdominal pain, abdominal distension, nausea, vomiting, diarrhea, constipation, melena, hematochezia GENITOURINARY: Present: Dysuria, frequency, urgency, hematuria Absent: hesitancy, flank pain, genital pain MUSCULOSKELETAL: Absent: myalgia, arthralgia, joint swelling SKIN: Absent: rash, itching, pallor HEMATOLOGIC/IMMUNOLOGIC: Absent: easy bleeding, easy bruising, lymphadenopathy, frequent infections ENDOCRINE: Absent: unexplained weight gain, unexplained weight loss, heat intolerance, cold intolerance NEUROLOGIC: Absent: headache, focal weakness or paresthesias, dizziness, unsteady gait, seizure, mental status changes, bladder or bowel incontinence PSYCHIATRIC: Absent: anxiety, depression, suicidal or homicidal ideation, hallucinations. Is the patient limited Hebrew proficient: No *Physical Exam - Vital Signs Last Vital Signs Temp Pulse Resp BP Pulse Ox 102 H 20 117/90 100 11/08/19 16:42 11/08/19 16:42 11/08/19 16:42 11/08/19 16:42 - Physical Exam 11/08/19 17:55 GENERAL: Well developed, well nourished. Awake and alert. No acute distress. HEENT: Normocephalic, atraumatic. PERRLA, EOMI. No conjunctival pallor. Sclera are non- icteric. Moist mucous membranes. Oropharynx is clear. NECK: Supple. Full ROM. No JVD. Carotid pulses 2+ and symmetric, without bruits. No thyromegaly. No lymphadenopathy. CARDIOVASCULAR: Regular rate and rhythm. No murmurs, rubs, or gallops. Distal pulses are 2+ and symmetric. PULMONARY: No evidence of respiratory distress. Lungs clear to auscultation bilaterally. No wheezing, rales or rhonchi. ABDOMINAL: Suprapubic discomfort, Soft.. Non-distended. No rebound or guarding. No organomegaly. Normoactive bowel sounds. MUSCULOSKELETAL Normal range of motion at all joints. No bony deformities or tenderness. No CVA tenderness. EXTREMITIES: No cyanosis. No clubbing. No edema. No calf tenderness. SKIN: Warm and dry. Normal capillary refill. No rashes. No jaundice. NEUROLOGICAL: Alert, awake, appropriate. Cranial nerves 2-12 intact. No deficits to light touch and temperature in face, upper extremities and lower extremities. No motor deficits in the in face, upper extremities and lower extremities. Normoreflexic in the upper and lower extremities. Normal speech. Toes are down-going bilaterally. Gait is normal without ataxia. PSYCHIATRIC: Cooperative. Good eye contact. Appropriate mood and affect. ED Treatment Course - ADDITIONAL ORDERS Additional order review: Laboratory Results 11/08/19 16:52 Urine Color Red Urine Appearance Cloudy Urine pH 5.0 D Ur Specific [place] 1.026 Urine Protein 3+ H Urine Glucose (UA) Negative Urine Ketones Negative Urine Blood 3+ H Urine Nitrite Positive H Urine Bilirubin 2+ H Urine Urobilinogen 1.0 Ur Leukocyte Esterase 2+ H Urine WBC (Auto) 2811 Urine Casts (Auto) 0 U Epithel Cells (Auto) 4 Urine Bacteria (Auto) >10,000 Medical Decision Making - Medical Decision Making 11/08/19 17:55 The patient is a 34-year-old female past medical history of uterine fibroids, dysfunctional uterine bleeding, presents to the ER today for dysuria starting last night. She states it is very painful when she pees. She states that she is unsure of her last menstrual cycle as she has been intermittently spotting since August. She states she has a known uterine fibroid and is currently being treated by her [facility] for this issue. She does not soak more than 1 pad an hour. Denies fevers, chills, back pain, flank pain, nausea and vomiting. Patient is not currently sexually active and not concerned for STDs at this time. A/P: UTI On exam patient has a nitrite positive UA with over 10,000 bacteria. We will treat with Keflex at this time for UTI. Lab unable to run test due to the fact that the urine is "too orange ". Patient denies that she is currently /sexually active at this time. Culture sent. Discharge home I discussed the physical exam findings, ancillary test results and final diagnoses with the patient. I answered all of the patient's questions. The patient was satisfied with the care received and felt comfortable with the discharge plan and treatment plan. The Patient agrees to follow up with the primary care physician/specialist within 24-72 hours. Return precautions were given. Discharge - Discharge Information Problems reviewed: Yes Clinical Impression/Diagnosis: UTI (urinary tract infection) Qualifiers: Urinary tract infection type: acute cystitis Hematuria presence: with hematuria Qualified Code(s): N30.01 - Acute cystitis with hematuria Condition: Stable Disposition: HOME - Admission No - Additional Discharge Information Prescriptions: Cephalexin Monohydrate [Keflex -] 500 mg PO BID #14 capsule Phenazopyridine HCl [Pyridium -] 100 mg PO TID #15 tablet - Follow up/Referral Referrals: Mark Hidalgo MD [Primary Care Provider] - - Patient Discharge Instructions Patient Printed Discharge Instructions: DI for Urinary Tract Infection (UTI) Additional Instructions: You have a urinary tract infection. This caused by bacteria. Please drink plenty of fluids. Take your antibiotics as prescribed. Finish the entire dose even if you feel better. You may take Tylenol or Motrin as needed for pain Please follow up with your primary care doctor this week. Return to the emergency department if you have fevers, chills, nausea, vomiting, back pain, or have any changes in your symptoms. - Post Discharge Activity
[2019-11-08 21:49] LABS: URINE RBC 329.5 /uL (0-23.9); YEAST SEEN (NEGATIVE)
== END 2019-11-08 18:30 | disposition home or self-care (01) ==
LOC: JERFT 16:36
DX: N30.01 Acute cystitis with hematuria (principal)
CPT/HCPCS: 81003; 87086; 87186; 99284-25

== ENCOUNTER 2020-06-11 18:19 | Emergency (ER) | payer OTHER ==
[2020-06-11 19:09] VITALS: BP 128/89; PULSE 88; TEMP 98.2; BMI 22.6
[2020-06-11] MEDS ORDERED: CEPHALEXIN MONOHYDRATE 500 MG CAPSULE (UD) PO ONE (19:43)
[2020-06-11] MEDS ORDERED: CEPHALEXIN MONOHYDRATE 500 MG CAPSULE (UD) ONE (19:59)
[2020-06-11 20:41] LABS: HCG,QUALITATIVE URINE Negative
[2020-06-11 20:43] LABS: EPI CELLS 2 /uL (0-25.1); HYALINE CASTS 0 /uL (0-3.1); PH,URINE 5.5 (5.0-8.0); URINE APPEARANCE TURBID; URINE BILIRUBIN NEGATIVE (NEGATIVE); URINE COLOR DK YELLOW; URINE GLUCOSE (UA) NEGATIVE (NEGATIVE); URINE KETONE NEGATIVE (NEGATIVE); URINE LEUK ESTERASE 2+ (NEGATIVE); URINE NITRITE POSITIVE (NEGATIVE); URINE PROTEIN 2+ (NEGATIVE); URINE RBC 858 /uL (0-23.9); URINE WBC 4812 /uL (0-25.8)
== END 2020-06-11 20:33 | disposition home or self-care (01) ==
LOC: JER 18:19
DX: N30.01 Acute cystitis with hematuria (principal)
CPT/HCPCS: 81003; 84703; 87086; 87186; 99284-25

== ENCOUNTER 2020-06-24 11:35 | Emergency (ER) | payer OTHER ==
[2020-06-24 11:54] VITALS: BMI 21.7
[2020-06-24] MEDS ORDERED: ONDANSETRON 4 MG/2 ML VIAL IVPUSH ONE (11:59)
[2020-06-24] MEDS ORDERED: SODIUM CHLORIDE 1,000 ML IV STA (11:59)
[2020-06-24] MEDS ORDERED: ONDANSETRON 4 MG/2 ML VIAL ONE (12:22)
[2020-06-24 12:30] LABS: BASO % 0.6 % (0-2.0); EOS % 1.5 % (0-4.5); HEMATOCRIT 34.3 % (32.4-45.2); HEMOGLOBIN 10.8 GM/dL (10.7-15.3); LYMPH % 22.6 % (8-40); MCH 25.4 pg (25.7-33.7); MCHC 31.5 g/dl (32.0-36.0); MEAN CELL VOLUME 80.8 fl (80-96); MEAN PLT VOLUME 7.3 fl (7.5-11.1); MONO % 6.6 % (3.8-10.2); NEUT % 68.7 % (42.8-82.8); PLATELET COUNT 502 K/MM3 (134-434); RBC 4.25 M/mm3 (3.60-5.2); RDW 29.6 % (11.6-15.6); WHITE BLOOD COUNT 8.9 K/mm3 (4.0-10.0)
[2020-06-24 12:32] LABS: EPI CELLS 2 /uL (0-25.1); HYALINE CASTS 0 /uL (0-3.1); URINE APPEARANCE CLEAR; URINE BACTERIA 24 /uL (0-1359); URINE BILIRUBIN NEGATIVE (NEGATIVE); URINE COLOR YELLOW; URINE GLUCOSE (UA) NEGATIVE (NEGATIVE); URINE KETONE NEGATIVE (NEGATIVE); URINE LEUK ESTERASE NEGATIVE (NEGATIVE); URINE NITRITE NEGATIVE (NEGATIVE); URINE PROTEIN NEGATIVE (NEGATIVE); URINE RBC 84 /uL (0-23.9); URINE UROBILINOGEN 0.2 mg/dL (0.2-1.0); URINE WBC 2 /uL (0-25.8)
[2020-06-24 12:51] LABS: POTASSIUM 3.9 mmol/L (3.5-5.1)
[2020-06-24 12:54] LABS: ALBUMIN 3.2 g/dl (3.4-5.0); BLOOD UREA NITROGEN 11.1 mg/dL (7-18); MAGNESIUM 1.9 mg/dL (1.8-2.4)
[2020-06-24 12:57] LABS: CREATININE 0.7 mg/dL (0.55-1.3)
[2020-06-24 12:59] LABS: BILIRUBIN,TOTAL 0.2 mg/dL (0.2-1); TOT PROT 7.2 g/dl (6.4-8.2)
[2020-06-24] MEDS ORDERED: ACETAMINOPHEN 1000 MG/100 ML VIAL (NON FORMULARY) IVPB ONE (13:05)
[2020-06-24] MEDS ORDERED: ACETAMINOPHEN INJECTION 100 ML IVPB ONE (13:26)
[2020-06-24 13:50] LABS: METHADONE, UR NEGATIVE ng/ml (CUTOFF=300); OPIATES, URI NEGATIVE ng/ml (CUTOFF=300); PHENCYCLIDINE,URINE NEGATIVE ng/ml (CUTOFF=25); URINE AMPHETAMINES NEGATIVE ng/ml (CUTOFF=500); URINE BENZODIAZEPINES NEGATIVE ng/ml (CUTOFF=200)
[2020-06-24 13:52] LABS: COCAINE, UR NEGATIVE ng/ml (CUTOFF=300); URINE BARBITURATES NEGATIVE ng/ml (CUTOFF=200)
[2020-06-24 15:39] VITALS: BP 110/68; PULSE 89; TEMP 98
== END 2020-06-24 15:37 | disposition home or self-care (01) ==
LOC: JER 11:35
PROC: 3E0333Z Introduction of Anti-inflammatory into Peripheral Vein, Percutaneous Approach (ICD-10-PCS; principal; 2020-06-24)
PROC: 3E033GC Introduction of Other Therapeutic Substance into Peripheral Vein, Percutaneous Approach (ICD-10-PCS; 2020-06-24)
PROC: 3E0337Z Introduction of Electrolytic and Water Balance Substance into Peripheral Vein, Percutaneous Approach (ICD-10-PCS; 2020-06-24)
DX: D25.9 Leiomyoma of uterus, unspecified (principal)
CPT/HCPCS: 36415; 76856-TC; 80053; 80307; 81003; 83605; 83690; 83735; 84703; 85025; 87086; 99284-25; J0131